=== PATIENT | female | born 1950 | race Caucasian/White ===

== ENCOUNTER 2019-01-13 08:05 | Day surgery (SDC) | payer OTHER ==
[~2019-01-13] VITALS: Ht 165.1 cm; Wt 59.0 kg
[~2019-01-13 08:05] MED LIST: ZOCOR5 MG PO
[2019-01-14] MEDS ORDERED: PERCOCET 5-3251 EACH PO (09:17)
[2019-01-14] MEDS ORDERED: SURFAK240 M1 PO (09:17)
== END 2019-01-14 08:00 | disposition home or self-care (01) ==
LOC: CIR.AMB 08:05 → O/R 19:22 → OB/GYN 19:22 → CIR.AMB 01-14 08:00 → OB/GYN 01-14 10:07 → O/R 01-14 10:07
DX: N81.11 Cystocele, midline (principal); N81.5 Vaginal enterocele